=== PATIENT | male | born 1980 | race Caucasian/White ===

== ENCOUNTER → 2020-03-03 | Outpatient (CLI) | payer BC ==
--- NOTE | 2020-03-03 15:13 | RAD ---
3 views left hand without comparison for swelling of the left hand. FINDINGS: There is no fracture, dislocation, or acute osseous abnormality identified. Joints and soft tissues are grossly unremarkable. No significant degenerative changes. IMPRESSION: 1. No acute osseous abnormality. Electronically signed by: Prosper Larsen MD (03/03/2020 3:10 PM) [id number]
== END ==
LOC: DXRAD 14:13
PROVIDERS: ATTEND Internal Medicine
DX: M79.89 Other specified soft tissue disorders (principal)
CPT/HCPCS: 73130